=== PATIENT | female | born 1980 | race Caucasian/White ===

== ENCOUNTER 2018-01-08 14:31 | Emergency (ER) | payer OTHER ==
[~2018-01-08] VITALS: Ht 157.5 cm; Wt 90.7 kg
[~2018-01-08 14:31] MED LIST: OMEPRAZOLE MAGN20 MG PO; PROM25S PR; SYNTHROID25 MCG PO; TERB250 PO; THYR60
[2018-01-08 14:51] LABS: BASOPHILS ABSOLUTE AUTO 0.01 K/mm3 (0.00-0.23); BASOPHILS PERCENT AUTO 0 % (0-2); EOSINOPHILS ABSOLUTE AUTO 0.04 K/mm3 (0.00-0.68); EOSINOPHILS PERCENT AUTO 0 % (0-6); Hematocrit 38.7 % (33.0-51.0); Hemoglobin 12.4 g/dL (11.5-16.0); IMMATURE GRAN ABSOLUTE AUTO 0.03 K/mm3 (0.00-0.10); IMMATURE GRAN PERCENT AUTO 0 % (0-1); LYMPHOCYTES ABSOLUTE AUTO 3.37 K/mm3 (0.84-5.20); LYMPHOCYTES PERCENT AUTO 34 % (21-46); MONOCYTES ABSOLUTE AUTO 0.53 K/mm3 (0.16-1.47); MONOCYTES PERCENT AUTO 5 % (4-13); Mean Corpuscular HGB 27.3 pg (26.0-34.0); Mean Corpuscular Volume 85 fL (80-100); Mean Platelet Volume 9.2 fL (9.1-12.4); NEUTROPHILS ABSOLUTE AUTO 5.91 K/mm3 (1.96-9.15); NEUTROPHILS PERCENT AUTO 60 % (41-73); Platelet Count 382 K/mm3 (150-400); RDW Coefficient Variation 11.9 % (11.7-14.2); RDW Standard Deviation 36.8 fL (35.1-46.3); Red Blood Cell Count 4.54 M/mm3 (3.80-5.20); White Blood Cell Count 9.89 K/mm3 (4.00-11.30)
[2018-01-08 15:17] LABS: Alanine Aminotransfer (ALT/SGP 139 U/L (12-78); Albumin, Blood 3.3 g/dL (3.4-5.0); Albumin/Globulin Ratio 0.9 (0.8-1.8); Alk Phos 77 U/L (50-136); Anion Gap 7 mmol/L (6-16); Aspartate Aminotrans (AST/SGOT 72 U/L (12-37); Bilirubin, Total 0.3 mg/dL (0.1-1.0); Blood Urea Nitrogen 12 mg/dL (8-24); Bun/Creatinine Ratio 16.2 (12.0-20.0); CO2, Blood 26 mmol/L (21-32); Calcium, Blood 8.3 mg/dL (8.5-10.1); Chloride, Blood 106 mmol/L (98-108); Creatinine, Blood 0.74 mg/dL (0.40-1.00); Globulin, Blood 3.8 g/dL (2.2-4.0); Glomerular Filtration Rate >60 (60-); Glucose, Blood 106 mg/dL (70-99); Potassium, Blood 3.8 mmol/L (3.5-5.5); Sodium, Blood 139 mmol/L (136-145); Total Protein, Blood 7.1 g/dL (6.4-8.2); Troponin I <0.015 ng/mL (0.000-0.040)
== END 2018-01-08 18:05 | disposition home or self-care (01) ==
LOC: ER 14:31
PROVIDERS: Physician Assistant
DX: R55 Syncope and collapse (principal); N94.6 Dysmenorrhea, unspecified; Z79.899 Other long term (current) drug therapy
CPT/HCPCS: 36415; 71046; 76705; 80053; 83690; 84484; 85025; 93005; 93010; 99284

== ENCOUNTER → 2023-09-27 | Outpatient (CLI) | payer MEDICARE, OTHER ==
[2023-10-11 04:03] LABS: HPV GENOTYPE 16 Not Detected; HPV GENOTYPE 18 Not Detected; HPV HIGH RISK Not Detected; HPV SOURCE Not Provided
== END ==
LOC: LAB SHORT 13:03 → LAB 13:03
PROVIDERS: Family Medicine
DX: Z01.419 Encounter for gynecological examination (general) (routine) without abnormal findings (principal)
CPT/HCPCS: 87624; G0123

== ENCOUNTER → 2025-01-12 | Outpatient (CLI) | payer MEDICARE, OTHER ==
[2025-01-12 09:40] LABS: BASOPHILS ABSOLUTE AUTO 0.01 K/mm3 (0.00-0.23); BASOPHILS PERCENT AUTO 0 % (0-2); EOSINOPHILS ABSOLUTE AUTO 0.01 K/mm3 (0.00-0.68); EOSINOPHILS PERCENT AUTO 0 % (0-6); Hemoglobin 11.5 g/dL (11.5-16.0); IMMATURE GRAN ABSOLUTE AUTO 0.02 K/mm3 (0.00-0.10); IMMATURE GRAN PERCENT AUTO 0 % (0-1); LYMPHOCYTES ABSOLUTE AUTO 1.59 K/mm3 (0.84-5.20); LYMPHOCYTES PERCENT AUTO 21 % (21-46); MONOCYTES ABSOLUTE AUTO 0.43 K/mm3 (0.16-1.47); MONOCYTES PERCENT AUTO 6 % (4-13); Mean Corpuscular HGB 24.1 pg (26.0-34.0); Mean Corpuscular HGB Conc 30.3 g/dL (31.5-36.5); Mean Corpuscular Volume 80 fL (80-100); Mean Platelet Volume 9.1 fL (9.1-12.4); NEUTROPHILS ABSOLUTE AUTO 5.56 K/mm3 (1.96-9.15); NEUTROPHILS PERCENT AUTO 73 % (41-73); Platelet Count 404 K/mm3 (150-400); RDW Coefficient Variation 15.9 % (11.7-14.2); Red Blood Cell Count 4.78 M/mm3 (3.80-5.20); White Blood Cell Count 7.62 K/mm3 (4.00-11.30)
[2025-01-12 09:58] LABS: Albumin, Blood 3.5 g/dL (3.4-5.0); Albumin/Globulin Ratio 0.9 (0.8-1.8); Bilirubin, Total 0.6 mg/dL (0.1-1.0); Bun/Creatinine Ratio 16.3 (12.0-20.0); Calcium, Blood 8.7 mg/dL (8.5-10.1); Creatinine, Blood 1.04 mg/dL (0.40-1.00); Globulin, Blood 3.9 g/dL (2.2-4.0); Potassium, Blood 3.5 mmol/L (3.5-5.5); Total Protein, Blood 7.4 g/dL (6.4-8.2)
== END | disposition home or self-care (01) ==
LOC: LAB 09:36 → LAB SHORT 09:36
PROVIDERS: Physician Assistant
DX: R11.2 Nausea with vomiting, unspecified (principal)
CPT/HCPCS: 80053; 83690; 85025

== ENCOUNTER 2025-02-13 12:01 | Emergency (ER) | payer MEDICARE, OTHER ==
[~2025-02-13] VITALS: Ht 160 cm; Wt 90.7 kg
[2025-02-13 12:20] VITALS: BP 120/94
[2025-02-13 12:44] LABS: BASOPHILS ABSOLUTE AUTO 0.01 K/mm3 (0.00-0.23); BASOPHILS PERCENT AUTO 0 % (0-2); EOSINOPHILS ABSOLUTE AUTO 0.05 K/mm3 (0.00-0.68); EOSINOPHILS PERCENT AUTO 1 % (0-6); Hematocrit 37.7 % (33.0-51.0); Hemoglobin 11.7 g/dL (11.5-16.0); IMMATURE GRAN ABSOLUTE AUTO 0.02 K/mm3 (0.00-0.10); IMMATURE GRAN PERCENT AUTO 0 % (0-1); LYMPHOCYTES PERCENT AUTO 35 % (21-46); MONOCYTES ABSOLUTE AUTO 0.38 K/mm3 (0.16-1.47); MONOCYTES PERCENT AUTO 4 % (4-13); Mean Corpuscular HGB 24.2 pg (26.0-34.0); Mean Corpuscular Volume 78 fL (80-100); Mean Platelet Volume 8.7 fL (9.1-12.4); NEUTROPHILS ABSOLUTE AUTO 5.24 K/mm3 (1.96-9.15); NEUTROPHILS PERCENT AUTO 60 % (41-73); Platelet Count 490 K/mm3 (150-400); RDW Coefficient Variation 14.9 % (11.7-14.2); RDW Standard Deviation 42.5 fL (35.1-46.3); Red Blood Cell Count 4.83 M/mm3 (3.80-5.20)
[2025-02-13 13:14] LABS: Albumin, Blood 3.5 g/dL (3.4-5.0); Albumin/Globulin Ratio 0.9 (0.8-1.8); Bilirubin, Total 0.4 mg/dL (0.1-1.0); Bun/Creatinine Ratio 13.7 (12.0-20.0); Calcium, Blood 9.3 mg/dL (8.5-10.1); Creatinine, Blood 0.87 mg/dL (0.40-1.00); Potassium, Blood 3.9 mmol/L (3.5-5.5); Total Protein, Blood 7.5 g/dL (6.4-8.2)
== END 2025-02-13 14:09 | disposition home or self-care (01) ==
LOC: ER 12:01
PROVIDERS: Physician Assistant
DX: R56.9 Unspecified convulsions (principal); Z79.899 Other long term (current) drug therapy
CPT/HCPCS: 70450; 80053; 85025; 93005; 93010; 99285-25

== ENCOUNTER → 2025-05-18 | Outpatient (CLI) | payer MEDICARE, OTHER | LOC: LAB 11:57 → LAB SHORT 11:57 | DX: N39.0 Urinary tract infection, site not specified (principal) | CPT/HCPCS: 87086 ==

== ENCOUNTER 2025-07-26 10:05 | Emergency (ER) | payer MEDICARE, OTHER ==
[~2025-07-26] VITALS: Ht 152.4 cm; Wt 63.5 kg
[~2025-07-26 10:05] MED LIST changes: +PHENERGAN25 MG PR
[2025-07-26 11:07] LABS: BASOPHILS ABSOLUTE AUTO 0.02 K/mm3 (0.00-0.23); BASOPHILS PERCENT AUTO 0 % (0-2); EOSINOPHILS ABSOLUTE AUTO 0.25 K/mm3 (0.00-0.68); EOSINOPHILS PERCENT AUTO 2 % (0-6); Hematocrit 39.4 % (33.0-51.0); Hemoglobin 12.0 g/dL (11.5-16.0); IMMATURE GRAN ABSOLUTE AUTO 0.04 K/mm3 (0.00-0.10); IMMATURE GRAN PERCENT AUTO 0 % (0-1); LYMPHOCYTES ABSOLUTE AUTO 2.18 K/mm3 (0.84-5.20); LYMPHOCYTES PERCENT AUTO 16 % (21-46); MONOCYTES ABSOLUTE AUTO 1.01 K/mm3 (0.16-1.47); MONOCYTES PERCENT AUTO 8 % (4-13); Mean Corpuscular HGB Conc 30.5 g/dL (31.5-36.5); Mean Corpuscular Volume 78 fL (80-100); NEUTROPHILS ABSOLUTE AUTO 9.99 K/mm3 (1.96-9.15); NEUTROPHILS PERCENT AUTO 74 % (41-73); NRBC ABSOLUTE 0.00 K/mm3 (0.00-0.02); NRBC Auto 0.0 /100 WBC (0.0-0.2); Platelet Count 331 K/mm3 (150-400); RDW Coefficient Variation 16.0 % (11.7-14.2); RDW Standard Deviation 45.3 fL (35.1-46.3)
[2025-07-26 11:41] LABS: Alanine Aminotransfer (ALT/SGP 87.0 U/L (12-78); Albumin, Blood 3.2 g/dL (3.4-5.0); Albumin/Globulin Ratio 0.7 (0.8-1.8); Anion Gap 14.0 mmol/L (3-11); Aspartate Aminotrans (AST/SGOT 70.0 U/L (12-37); Bilirubin, Total 0.7 mg/dL (0.1-1.0); Blood Urea Nitrogen 16.0 mg/dL (8-24); CO2, Blood 24.0 mmol/L (21-32); Calcium, Blood 9.5 mg/dL (8.5-10.1); Chloride, Blood 105.0 mmol/L (98-108); Creatinine, Blood 0.9 mg/dL (0.40-1.00); Globulin, Blood 4.7 g/dL (2.2-4.0); Glucose, Blood 98.0 mg/dL (70-99); Potassium, Blood 4.0 mmol/L (3.5-5.5); Sodium, Blood 139.0 mmol/L (136-145); Total Protein, Blood 7.9 g/dL (6.4-8.2)
[2025-07-26] MEDS ORDERED: Morphine Sulfate 4 MG/1 ML Injection IV ONE (11:50)
[2025-07-26] MEDS ORDERED: Ondansetron HCl 2 MG / ML 2ML Vial IV ONE (11:50)
[2025-07-26] MEDS ORDERED: NS 1,000 ML IV SCH (11:50)
[2025-07-26] MEDS ORDERED: FAMO20 PO (14:49)
[2025-07-26] MEDS ORDERED: ABILIFY5 MG PO (14:49)
[2025-07-26] MEDS ORDERED: PAXIL40 M1 PO (14:49)
[2025-07-26] MEDS ORDERED: ONDA4 PO (15:04)
[2025-07-26] MEDS ORDERED: PROM12.5S PR (15:04)
[2025-07-26 15:42] VITALS: BP 110/74
== END 2025-07-26 15:44 | disposition home or self-care (01) ==
LOC: ER 10:05
PROVIDERS: Student in an Organized Health Care Education/Training Program
DX: R11.2 Nausea with vomiting, unspecified (principal); E86.0 Dehydration; K21.9 Gastro-esophageal reflux disease without esophagitis; E03.9 Hypothyroidism, unspecified; C22.9 Malignant neoplasm of liver, not specified as primary or secondary; Z79.890 Hormone replacement therapy; Z79.899 Other long term (current) drug therapy
CPT/HCPCS: 80053; 83690; 83735; 85025; 96361; 96374; 96375; 99284-25; J2270; J2405; J7030

== ENCOUNTER 2025-08-01 20:51 | Inpatient (IN) | payer MEDICARE, OTHER ==
[~2025-08-01] VITALS: Ht 154.9 cm; Wt 88.8 kg
[~2025-08-01 20:51] MED LIST changes: +ABILIFY5 MG PO; +EUTHYROX50 MCG PO; +FAMO20 PO; +OMEP20ER PO; -OMEPRAZOLE MAGN20 MG PO; +ONDA4 PO; +PAXIL40 M1 PO; +PROM12.5S PR; -SYNTHROID25 MCG PO
[2025-08-01 21:58] LABS: BASOPHILS ABSOLUTE AUTO 0.03 K/mm3 (0.00-0.23); BASOPHILS PERCENT AUTO 0 % (0-2); EOSINOPHILS ABSOLUTE AUTO 0.39 K/mm3 (0.00-0.68); EOSINOPHILS PERCENT AUTO 2 % (0-6); Hematocrit 42.9 % (33.0-51.0); Hemoglobin 12.7 g/dL (11.5-16.0); IMMATURE GRAN ABSOLUTE AUTO 0.06 K/mm3 (0.00-0.10); IMMATURE GRAN PERCENT AUTO 0 % (0-1); LYMPHOCYTES ABSOLUTE AUTO 2.60 K/mm3 (0.84-5.20); LYMPHOCYTES PERCENT AUTO 16 % (21-46); MONOCYTES ABSOLUTE AUTO 1.21 K/mm3 (0.16-1.47); MONOCYTES PERCENT AUTO 7 % (4-13); Mean Corpuscular HGB Conc 29.6 g/dL (31.5-36.5); Mean Corpuscular Volume 77 fL (80-100); NEUTROPHILS ABSOLUTE AUTO 12.10 K/mm3 (1.96-9.15); NEUTROPHILS PERCENT AUTO 74 % (41-73); NRBC ABSOLUTE 0.00 K/mm3 (0.00-0.02); NRBC Auto 0.0 /100 WBC (0.0-0.2); Platelet Count 243 K/mm3 (150-400); RDW Coefficient Variation 16.1 % (11.7-14.2); RDW Standard Deviation 44.5 fL (35.1-46.3)
[2025-08-01 22:17] LABS: Alanine Aminotransfer (ALT/SGP 60.0 U/L (12-78); Albumin, Blood 3.1 g/dL (3.4-5.0); Albumin/Globulin Ratio 0.7 (0.8-1.8); Anion Gap 8.0 mmol/L (3-11); Aspartate Aminotrans (AST/SGOT 102.0 U/L (12-37); Bilirubin, Total 0.5 mg/dL (0.1-1.0); Blood Urea Nitrogen 18.0 mg/dL (8-24); CO2, Blood 28.0 mmol/L (21-32); Calcium, Blood 9.7 mg/dL (8.5-10.1); Chloride, Blood 102.0 mmol/L (98-108); Creatinine, Blood 0.88 mg/dL (0.40-1.00); Globulin, Blood 4.6 g/dL (2.2-4.0); Glucose, Blood 164.0 mg/dL (70-99); Potassium, Blood 3.3 mmol/L (3.5-5.5); Sodium, Blood 135.0 mmol/L (136-145); Total Protein, Blood 7.7 g/dL (6.4-8.2)
[2025-08-01] MEDS ORDERED: NS 1,000 ML IV SCH (22:55)
[2025-08-01] MEDS ORDERED: HYDROmorphone HCl/Pf 1MG SYR IV ONE (22:55)
[2025-08-01] MEDS ORDERED: Ondansetron HCl 2 MG / ML 2ML Vial IV ONE (22:55)
[2025-08-01 23:48] LABS: Beta HCG, Quantitative, Serum 7264.0 mIU/mL (0-3)
[2025-08-02 02:35] LABS: Source, Urine Clean Catch
[2025-08-02 02:40] LABS: Bilirubin, Urine Neg (Neg); Glucose Qualitative, Urine Neg (Neg); Ketones, Urine Neg (Neg); Leukocyte Esterase, Urine 1+ (Neg); Protein, Urine 2+ (Neg); Specific Gravity, Urine 1.010 (1.003-1.022); Urobilinogen, Urine 2+ (Normal)
[2025-08-02 02:48] LABS: Color, Urine Yellow (P-Yellow)
[2025-08-02 02:49] LABS: Red Blood Cells, Urine 0-2 /hpf (0-2); White Blood Cells, Urine 0-2 /hpf (0-5)
[2025-08-02] MEDS ORDERED: FLU VACC TS2025-26(6MOS UP)/PF 45 MCG/0.5 ML SYRINGE IM SCH (05:55)
[2025-08-02] MEDS ORDERED: Prochlorperazine Edisylate 10 mg Vial IV PRN (06:00)
[2025-08-02] MEDS ORDERED: Ondansetron HCl 2 MG / ML 2ML Vial IV PRN (06:00)
[2025-08-02] MEDS ORDERED: Dose Adjust by Pharmacy XX STA ×3 (06:21→23:01)
[2025-08-02] MEDS ORDERED: Heparin Sodium 5000 Units/ML 1ML MDV IV ONE ×2 (06:25→23:05)
[2025-08-02] MEDS ORDERED: Heparin Sodium,Porcine/0.5 NS 500 ML IV SCH (06:25)
[2025-08-02 06:54] LABS: Anti-Xa UFH, PHA Monitoring <0.10 IU/mL; Prothrombin Time Results 13.8 Sec (9.7-11.5)
[2025-08-02] MEDS ORDERED: Lactobacil 2-S.Thermo-Bifido 1 1 Cap PO SCH (09:00)
--- NOTE | 2025-08-02 11:16 | NUR ---
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
[2025-08-02 12:57] VITALS: BP 118/86
[2025-08-02] MEDS ORDERED: Magnesium Hydroxide Conc 10 ML UDC PO PRN (13:20)
--- NOTE | 2025-08-02 13:39 | NUR ---
EDGARDO STARTED FEELING ILL OVER THE LAST COUPLE OF WEEKS. INTRACTABLE N/V. CHEST PAINS STARTED 08/01/25. WEIGHT IN MAY 232 LBS, July 196 LBS, TODAY 192 LBS.; 40 LB LOSS. 4 VISITS IN THE LAST 5 MONTHS. EDGARDO LIVES AT [facility], A 24 HR RESIDENTAL HOME FOR INTELLECTUAL/DEVELOPMENTAL DISABILITIES. SHE HAS A GREAT SUPPORT NETWORK WITHIN THE HOME. BIRD IS THE BANDER AND CELLOPHANER MACHINE AND ELIZABET RUDOLPH IS THE HOUSE CAN COVERER. ELIZABET RAN THE [facility] THAT PT LIVED AT FOR THE LAST 13 YEARS. ELIZABET REPORTS PT HAS NOT YET MET WITH ONCOLOGY, SINCE FIRST DIAGNOSIS. CONSULTATION IS PENDING INSURANCE AUTHORIZATION. HOSPITALIST REPORTS SHE WILL CONSULT TOMORROW MORNING 08/03/25 IN HOPES OF MAKING A FOCUSED CARE PLAN FROM AN ONCOLOGY STAND POINT. PT IS ALERT. SITTING ON THE EDGE OF BED FEEDING HERSELF. SHE IS ORIENTED TO SELF AND HER MONTH/DAY OF AND [place]. ORIENTATION IS AT BASELINE PER ACADEMIC ASSISTANT ELIZABET. CG ALSO REPORTS PT WILL DENY PAIN WHEN ASKED. THEN A SHORT TIME LATER, PT WILL C/O ABDOMINAL PAIN OR CHEST PAIN. BEST WAY OF ASSESSING PAIN FOR EDGARDO WILL BE TO USE THE FLACC SCALE.
[2025-08-02 17:25] VITALS: BP 110/72
[2025-08-02 20:42] VITALS: BP 112/71
[2025-08-02 23:34] VITALS: BP 104/67
[2025-08-03 04:36] VITALS: BP 114/78
[2025-08-03 05:05] LABS: BASOPHILS ABSOLUTE AUTO 0.03 K/mm3 (0.00-0.23); BASOPHILS PERCENT AUTO 0 % (0-2); EOSINOPHILS ABSOLUTE AUTO 0.53 K/mm3 (0.00-0.68); EOSINOPHILS PERCENT AUTO 5 % (0-6); Hematocrit 35.2 % (33.0-51.0); Hemoglobin 10.6 g/dL (11.5-16.0); IMMATURE GRAN ABSOLUTE AUTO 0.04 K/mm3 (0.00-0.10); IMMATURE GRAN PERCENT AUTO 0 % (0-1); LYMPHOCYTES ABSOLUTE AUTO 1.82 K/mm3 (0.84-5.20); LYMPHOCYTES PERCENT AUTO 16 % (21-46); MONOCYTES ABSOLUTE AUTO 0.93 K/mm3 (0.16-1.47); MONOCYTES PERCENT AUTO 8 % (4-13); Mean Corpuscular HGB Conc 30.1 g/dL (31.5-36.5); Mean Corpuscular Volume 77 fL (80-100); NEUTROPHILS ABSOLUTE AUTO 8.03 K/mm3 (1.96-9.15); NEUTROPHILS PERCENT AUTO 70 % (41-73); NRBC ABSOLUTE 0.00 K/mm3 (0.00-0.02); NRBC Auto 0.0 /100 WBC (0.0-0.2); Platelet Count 205 K/mm3 (150-400); RDW Coefficient Variation 15.9 % (11.7-14.2); RDW Standard Deviation 44.2 fL (35.1-46.3)
[2025-08-03 05:39] LABS: Alanine Aminotransfer (ALT/SGP 43.0 U/L (12-78); Albumin, Blood 2.5 g/dL (3.4-5.0); Albumin/Globulin Ratio 0.7 (0.8-1.8); Anion Gap 6.0 mmol/L (3-11); Aspartate Aminotrans (AST/SGOT 76.0 U/L (12-37); Bilirubin, Total 0.5 mg/dL (0.1-1.0); Blood Urea Nitrogen 8.0 mg/dL (8-24); CO2, Blood 29.0 mmol/L (21-32); Calcium, Blood 8.6 mg/dL (8.5-10.1); Chloride, Blood 104.0 mmol/L (98-108); Creatinine, Blood 0.74 mg/dL (0.40-1.00); Globulin, Blood 3.8 g/dL (2.2-4.0); Glucose, Blood 115.0 mg/dL (70-99); Magnesium, Blood 2.0 mg/dL (1.6-2.4); Potassium, Blood 3.6 mmol/L (3.5-5.5); Sodium, Blood 135.0 mmol/L (136-145); Total Protein, Blood 6.3 g/dL (6.4-8.2)
[2025-08-03] MEDS ORDERED: Clarify Drug Order XX ONE (06:40)
--- NOTE | 2025-08-03 06:47 | NUR ---
SHIFT SUMMARY: PT IS A&O TO NAME, BUT NOT BIRTHDAY, SHE IS COOPERATIVE WITH CARE. VSS ON 2L OXYGEN VIA NC. SR 70'S-90'S. DENIES PAIN. HEPARIN GTT TITRATED PER ORDER. TOLERATING A FULL LIQUID DIET. PT TAKES HER PILLS WHOLE, ONE AT A TIME WITH FLUID. PT WAS INCONTINENT OF URINE AT SHIFT CHANGE. PLACED A WICKING SYSTEM, PT IS DUE TO VOID, BLADDER SCAN WAS 297. NO BM THIS SHIFT, BOWEL CARE ADMINISTERED. PT REPOSITIONING HERSELF IN BED. ONCOLOGY CONSULT CALLED IN THIS SHIFT TO DR. PEARSON ANSWERING SERVICE. BED IN LOWEST POSITION, CALL LIGHT WITHIN REACH. BED ALARM SET FOR PT'S SAFETY.
[2025-08-03] MEDS ORDERED: FENTANYL1 EA10 TOP (07:19)
[2025-08-03] MEDS ORDERED: ACET500 PO (07:25)
[2025-08-03] MEDS ORDERED: DURAMORPH0.5 MG/1 M PO (07:33)
[2025-08-03] MEDS ORDERED: ONDANSETRON SL (07:40)
[2025-08-03 07:53] VITALS: BP 92/68
[2025-08-03] MEDS ORDERED: BISA10S PR (11:35)
[2025-08-03] MEDS ORDERED: ELIQUIS5 M2 PO (11:35)
[2025-08-03] MEDS ORDERED: DOCU100 PO (11:36)
[2025-08-03] MEDS ORDERED: Sen-O-Tab8.6 MG PO (11:38)
--- NOTE | 2025-08-03 14:31 | NUR ---
SUPPORTIVE VISIT THIS MORNING. EDGARDO IS ALERT. ORIENTED TO SELF, HAND ALMOND BLANCHER AND LOCATION (HOSPITAL). SHE IS SMILING AND CONVERSATIONAL. SHE KNOWS SHE IS AT THE HOSPITAL BUT DOESN'T KNOW WHY. SHE STATED, "I'M FINE". DENIES N/V/D, DYSPNEA, CP OR PAIN. "I WANT TO GO HOME NOW". PLAN: D/C TO HER ASSISTED LIVING HOME WITH [facility]. CG WILL TRANSPORT HOME.
--- NOTE | 2025-08-03 14:33 | NUR ---
SHIFT SUMMARY PATIENT AOX2 ABLE TO MAKE NEEDS KNOWN. VITALS STABLE HR TACHY. DENIES CP OR SOB. DENIES ABD PAIN NO NAUSEA NO VOMITTING TOLERATING MEALS. UP TO COMMODE TO VOID WITH [id number]. [facility] AT BEDSIDE. EDUCATION PATIENT AND [facility] AT BEDSIDE ALL DISCHARGE INSTRUCTIONS.
== END 2025-08-03 13:13 | disposition hospice, home (50) | DRG 176 ==
LOC: ER 20:51 → ERHOLD 08-02 05:54 → PCU 08-02 05:54
PROVIDERS: Student in an Organized Health Care Education/Training Program; ADMIT Student in an Organized Health Care Education/Training Program
DX: I26.94 Multiple subsegmental thrombotic pulmonary emboli without acute cor pulmonale (principal); E87.1 Hypo-osmolality and hyponatremia; C25.0 Malignant neoplasm of head of pancreas; C78.7 Secondary malignant neoplasm of liver and intrahepatic bile duct; K21.9 Gastro-esophageal reflux disease without esophagitis; E03.9 Hypothyroidism, unspecified; E66.9 Obesity, unspecified; E87.6 Hypokalemia; R00.0 Tachycardia, unspecified; D72.829 Elevated white blood cell count, unspecified; K82.8 Other specified diseases of gallbladder; R59.1 Generalized enlarged lymph nodes; D64.9 Anemia, unspecified; Z68.36 Body mass index [BMI] 36.0-36.9, adult; Z79.890 Hormone replacement therapy; Z79.899 Other long term (current) drug therapy; Z86.59 Personal history of other mental and behavioral disorders; Z23 Encounter for immunization
CPT/HCPCS: 36415; 71046; 71260; 80053; 81001; 82947; 83605; 83690; 83735; 83880; 84145; 84484; 84702; 84703; 85025; 85520; 85610; 85730; 93005; 93010; 93306; 96361; 96374-59; 96375-59; 99285-25; A9270; C1751; J1171; J1644; J2405; J7030; J7120; Q9967